=== PATIENT | male | born 1965 ===

== ENCOUNTER 2017-02-02 12:47 | Emergency (ER) | payer OTHER ==
[2017-02-02 12:59] VITALS: BP 130/78; PULSE 80; RESP 18; TEMP 97; O2SAT 100
--- NOTE | 2017-02-02 13:19 | ED PDOC ---
Lower Extremity Pain/Injury Time Seen by Provider: 02/02/17 12:49 Chief Complaint (Nursing): Trauma Chief Complaint (Provider): Knee Pain s/p fall 3 days ago History Per: Patient History/Exam Limitations: no limitations Current Symptoms Are (Timing): Still Present Additional Complaint(s): Meir Hart, a 51y/o male, presents to the ED wit knee pain. The patient report sthat he fell three days ago and hit his knee. He states that he has been taking ibuprofen with mild relief. The patient also reports that he does have pain when he turns his neck that radiates into his right shoulder. Denies head injury. - Knee Description Of Injury: Fell Past Medical History Reviewed: Historical Data, Nursing Documentation, Vital Signs Vital Signs: Last Vital Signs Temp 97 F L 02/02/17 12:56 Pulse 80 02/02/17 12:56 Resp 18 02/02/17 12:56 BP 130/78 02/02/17 12:56 Pulse Ox 100 02/02/17 12:56 - Medical History PMH: Anxiety, Depression, Gastritis Denies: HIV, Chronic Kidney Disease - Surgical History Surgical History: No Surg Hx - Family History Family History: States: Unknown Family Hx - Social History Current smoker - smoking cessation education provided: No Alcohol: Social Drugs: Denies - Home Medications Home Medications: Ambulatory Orders Medication Instructions Recorded Alprazolam [Xanax] 0.25 mg PO DAILY 02/13/15 Ibuprofen [Motrin] 600 mg PO Q6 PRN #20 tab 03/07/15 Oxycodone HCl/Acetaminophen 1 tab PO Q4 PRN #12 tab 03/07/15 [Percocet 325 mg-5 mg] Ciprofloxacin/Hydrocortisone 10 ml XX BID 7 Days 05/25/16 [Cipro Hc 0.2%-1% 10 ml] Cyclobenzaprine [Cyclobenzaprine 10 mg PO Q8H PRN #12 tab 02/02/17 HCl] traMADol [Ultram] 50 mg PO Q6H PRN #15 tab 02/02/17 - Allergies Allergies/Adverse Reactions: Allergies Allergy/AdvReac Type Severity Reaction Status Date / Time No Known Allergies Allergy Verified 09/08/14 10:58 Review of Systems ROS Statement: Except As Marked, All Systems Reviewed And Found Negative Musculoskeletal: Positive for: Neck Pain, Leg Pain Physical Exam - Reviewed Nursing Documentation Reviewed: Yes Vital Signs Reviewed: Yes - Physical Exam Appears: Positive for: Non-toxic, No Acute Distress Head Exam: Positive for: ATRAUMATIC, NORMAL INSPECTION, NORMOCEPHALIC Skin: Positive for: Normal Color, Warm, Dry Eye Exam: Positive for: Normal appearance, EOMI, PERRL ENT: Positive for: Normal ENT Inspection Neck: Positive for: Normal Cardiovascular/Chest: Positive for: Regular Rate, Rhythm, Chest Non Tender. Negative for: Tachycardia Respiratory: Positive for: Normal Breath Sounds. Negative for: Wheezing, Respiratory Distress Pulses-Dorsalis Pedis (L): 2+ Pulses-Dorsalis Pedis (R): 2+ Pulses-Post. Tibialis (L): 2+ Pulses-Post. Tibialis (R): 2+ Pulses-Radial (L): 2+ Pulses-Radial (R): 2+ Back: Positive for: Normal Inspection, Muscle Spasm (Right trapezius ). Negative for: Vertebral Tenderness Extremity: Positive for: Normal ROM (Full ROM in the right shoulder ), Other ( Tenderness to superior lateral part of patellar.). Negative for: Deformity, Swelling Neurologic/Psych: Positive for: Alert, Oriented, Gait - ECG O2 Sat by Pulse Oximetry: 100 (RA) Pulse Ox Interpretation: Normal Medical Decision Making Medical Decision Makin Initial Impression: 51 year old male presenting with knee pain Initial Plan: * RAD Knee * Flexeril 10mg PO * Ultram 50mg PO * Reevaluation Knee x-ray: No acute fracture or dislocation. Pt reprots feeling better on re-evaluation Scribe Attestation Documented by Aissatou Betts acting as a scribe for Effie Lopez PA-C. Scribe Attestation All medical record entries made by the Scribe were at my direction and personally dictated by me. I have reviewed the chart and agree that the record accurately reflects my personal performance of the history, physical exam, medical decision making, and the department course for this patient. I have also personally directed, reviewed, and agree with the discharge instructions and disposition. Disposition - Clinical Impression Clinical Impression: Knee injury, Muscle spasm of right shoulder - Patient ED Disposition Is Patient to be Admitted: No Counseled Patient/Family Regarding: Diagnosis, Need For Followup - Disposition Referrals: [facility] [Outside] Magen Stanley MD [Staff Provider] - Disposition: Routine/Home Disposition Time: 13:51 Condition: GOOD Prescriptions: Cyclobenzaprine [Cyclobenzaprine HCl] 10 mg PO Q8H PRN #12 tab PRN Reason: Muscle Spasm traMADol [Ultram] 50 mg PO Q6H PRN #15 tab PRN Reason: Pain Instructions: Knee Pain (ED)
--- NOTE | 2017-02-02 15:11 | RAD ---
PROCEDURE: Left Knee Radiographs. HISTORY: Pain. COMPARISON: None. FINDINGS: BONES: Bone alignment and mineralization are normal. There is no acute fracture or bone destruction. JOINTS: Normal. No osteoarthritis. JOINT EFFUSION: There is a small suprapatellar joint effusion. OTHER FINDINGS: None. IMPRESSION: Small suprapatellar joint effusion. No acute fracture or dislocation.
== END 2017-02-02 14:00 | disposition home or self-care (01) ==
LOC: H.ER 12:47
DX: S89.92XA Unspecified injury of left lower leg, initial encounter (principal); M25.511 Pain in right shoulder; W19.XXXA Unspecified fall, initial encounter; Y92.89 Other specified places as the place of occurrence of the external cause; F32.9 Major depressive disorder, single episode, unspecified; F41.9 Anxiety disorder, unspecified

== ENCOUNTER 2017-10-25 09:00 | Day surgery (SDC) | payer OTHER ==
[2017-10-25] MEDS ORDERED: Lactated Ringer's 500 ML IV ONE (09:12)
[2017-10-25] MEDS ORDERED: Propofol 10 mg/ml Inj (20 ML) ONE (11:35)
[2017-10-25] MEDS ORDERED: Lidocaine PF 2% (5 ml) Inj (For Cardiac Arrhy) IV ONE (11:35)
[2017-10-25] MEDS ORDERED: Midazolam 2 MG/2 ML VIAL ONE (11:35)
[2017-10-25 12:42] VITALS: BP 122/66; PULSE 81; RESP 18; TEMP 96.8; O2SAT 97
== END 2017-10-25 12:45 | disposition home or self-care (01) ==
LOC: H.ENDO 09:00
PROVIDERS: ATTEND Internal Medicine Gastroenterology
DX: Z12.11 Encounter for screening for malignant neoplasm of colon (principal); K64.8 Other hemorrhoids; K57.30 Diverticulosis of large intestine without perforation or abscess without bleeding
CPT/HCPCS: 45378; J2250; J2704; J7120

== ENCOUNTER 2018-02-17 11:33 | Emergency (ER) | payer OTHER ==
--- NOTE | 2018-02-17 12:11 | ED PDOC ---
HPI: Skin/Bite Injury Time Seen by Provider: 02/17/18 12:01 Chief Complaint (Nursing): Abnormal Skin Integrity Chief Complaint (Provider): Possible Insect Bites History Per: Patient History/Exam Limitations: no limitations Current Symptoms Are (Timing): Still Present Additional Complaint(s): 52 y/o male with no significant PMHx presenting for evaluation of pruritic rash to left knee x2 days. Patient states yesterday he was outside and when he came home he had a pruritic rash on his left leg. He said after looking at the rash he felt nauseous and dizzy which has since resolved. He says when he woke up the next morning the rash was swollen, prompting ED visit. He denies fever, numbness, tingling, and history of allergic reaction. PMD: Does not remember name Past Medical History Reviewed: Historical Data, Nursing Documentation, Vital Signs Vital Signs: Last Vital Signs Temp 98.4 F 02/17/18 12:49 Pulse 72 02/17/18 12:49 Resp 15 02/17/18 12:49 BP 138/78 02/17/18 12:49 Pulse Ox 99 02/17/18 13:33 - Medical History PMH: Anxiety, Depression, Gastritis Denies: HIV, Chronic Kidney Disease - Surgical History Surgical History: Endoscopy - Family History Family History: States: Unknown Family Hx - Home Medications Home Medications: Ambulatory Orders Medication Instructions Recorded Hydrocortisone 2.5% 1 applic TOP BID PRN #1 tube 02/17/18 - Allergies Allergies/Adverse Reactions: Allergies Allergy/AdvReac Type Severity Reaction Status Date / Time No Known Allergies Allergy Verified 09/08/14 10:58 Review of Systems ROS Statement: Except As Marked, All Systems Reviewed And Found Negative Constitutional: Negative for: Fever Gastrointestinal: Positive for: Nausea Skin: Positive for: Rash (left knee) Neurological: Positive for: Dizziness. Negative for: Numbness Physical Exam - Reviewed Nursing Documentation Reviewed: Yes Vital Signs Reviewed: Yes - Physical Exam Appears: Positive for: Non-toxic, No Acute Distress Skin: Positive for: Rash (scattered erythematous papules to left knee, able to extend knee to 0 degrees) Extremity: Positive for: Normal ROM Neurologic/Psych: Positive for: Alert, Oriented (x3) - ECG O2 Sat by Pulse Oximetry: 99 (RA) Pulse Ox Interpretation: Normal Medical Decision Making Medical Decision Makin:11 Impression: Insect bites Plan: Patient is concerned about having bed bugs. Informed patient that if he wakes up tomorrow morning with more lesions, he is to call an [facility] stock blank handler for possible fumigation. Patient will be discharged with Rx for Hydrocortisone cream. Patient is stable for discharge. Scribe Attestation: Documented by Antonio Loomis, acting as a scribe for Dave Mcbride PA-C. Provider Scribe Attestation: All medical record entries made by the scribe were at my direction and personally dictated by me. I have reviewed the chart and agree that the record accurately reflects my personal performance of the history, physical exam, medical decision making, and the department course for this patient. I have also personally directed, reviewed, and agree with the discharge instructions and disposition. Disposition - Clinical Impression Clinical Impression: Insect bites - Patient ED Disposition Is Patient to be Admitted: No Counseled Patient/Family Regarding: Diagnosis, Need For Followup, Rx Given - Disposition Referrals: [facility] [Outside] Disposition: Routine/Home Disposition Time: 12:11 Condition: STABLE Additional Instructions: BROOKLYNN CLAROS, thank you for letting us take care of you today. Your provider was Anton Paulson MD and you were treated for POSS INSECT BITE LEFT LEG. The emergency medical care you received today was directed at your acute symptoms. If you were prescribed any medication, please fill it and take as directed. It may take several days for your symptoms to resolve. Return to the Emergency Department if your symptoms worsen, do not improve, or if you have any other problems. Please contact your doctor or call one of the physicians/clinics you have been referred to that are listed on the Patient Visit Information form that is included in your discharge packet. Bring any paperwork you were given at discharge with you along with any medications you are taking to your follow up visit. Our treatment cannot replace ongoing medical care by a primary care provider outside of the emergency department. Thank you for allowing the [facility] team to be part of your care today. If you had an X-Ray or CT scan: A Radiologist will review the ED reading if any change in treatment is needed we will contact you. If you had a blood, urine, or wound culture: It will take several days for the results, if any change in treatment is needed we will contact you. If you had an STI test: It will take 48 hours for the results. Please call after 1 week if you have not heard back. Prescriptions: Hydrocortisone 2.5% 1 applic TOP BID PRN #1 tube PRN Reason: itching or rash Instructions: Insect Bites and Stings (DC) Forms: [facility] (Lithuanian) Print Language: GABONESE
[2018-02-17 12:50] VITALS: BP 138/78; PULSE 72; RESP 15; TEMP 98.4
[2018-02-17 13:09] VITALS: O2SAT 99
== END 2018-02-17 12:50 | disposition home or self-care (01) ==
LOC: H.ER 11:33
DX: S80.862A Insect bite (nonvenomous), left lower leg, initial encounter (principal); W57.XXXA Bitten or stung by nonvenomous insect and other nonvenomous arthropods, initial encounter; Y92.89 Other specified places as the place of occurrence of the external cause